=== PATIENT | female | born 2000 | race Caucasian/White ===

== ENCOUNTER 2025-01-18 06:00 | Day surgery (SDC) | payer MEDICAID, SELFPAY ==
[2025-01-14 07:19] VITALS: BMI 23.4
[2025-01-14 08:19] LABS: Basophils # (Auto) 0.0 Thou/mm3 (0.0-0.2); Basophils % (Auto) 0 % (0-2.5); Eosinophils # (Auto) 0.1 Thou/mm3 (0.0-0.5); Eosinophils % (Auto) 2 % (0-10); Hematocrit 37.5 % (36.0-46.0); Hemoglobin 12.4 g/dL (12.0-16.0); Immature Granulocytes Auto 0.03 Thou/mm3 (0.00-0.00); Lymphocytes # (Auto) 3.0 Thou/mm3 (1.0-4.8); Lymphocytes % (Auto) 40 % (10-50); Mean Corpuscular HGB Conc 33.1 g/dl (31.0-37.0); Mean Corpuscular Hemoglobin 29.6 pg (25.0-35.0); Mean Corpuscular Volume 90 fL (80-100); Monocytes # (Auto) 0.6 Thou/mm3 (0.0-0.8); Monocytes % (Auto) 7 % (0-12); Neutrophils # (Auto) 3.7 Thou/mm3 (1.8-7.7); Neutrophils % (Auto) 50 % (37-80); Nucleated Red Blood Cell # 0.00 Thou/mm3 (0.00-0.00); Nucleated Red Blood Cell % 0 /100 WBC (0); Platelet Count 238 Thou/mm3 (140-440); RDW Standard Deviation 45.9 fL (36.4-46.3); Red Blood Count 4.19 Miln/mm3 (4.00-5.20); White Blood Count 7.4 Thou/mm3 (3.6-11.0)
[2025-01-14 08:47] LABS: Anion Gap 11 (7-16); BUN/Creatinine Ratio 10 Ratio (12-20); Blood Urea Nitrogen 6 mg/dL (9-23); Calcium 9.7 mg/dL (8.3-10.6); Carbon Dioxide 24.4 mMol/L (20.0-31.0); Chloride 106 mMol/L (98-107); Creatinine (Component) 0.6 mg/dL (0.6-1.3); Estimated Creatinine Clearance 120.6 mL/min (>60); Glucose 82 mg/dL (74-106); Osmolality,Calculated 277 (275-295); Potassium 3.7 mMol/L (3.4-5.1); Sodium 141 mMol/L (136-145); eGFR > 60 See Note
[2025-01-14 09:04] LABS: HCG,Qualitative Serum Negative
[2025-01-18] VITALS (7 sets, daily range): BP systolic 93–120; BP diastolic 55–89; PULSE 67–85; RESP 12–15; TEMP 36.2–36.3; O2SAT 98–100; BMI 23.6
[2025-01-18] MEDS: RINGERS LACTATED 1000 ML 1,000 ML 20 ML IV (06:42)
[2025-01-18] MEDS: MIDAZOLAM INJ 1 MG/ML VIAL 2 ML 2 MG IVP (07:24)
--- NOTE | 2025-01-18 07:30 | CHAP ---
Patient was very nervous. I spent time comforting her and having a prayer with her.
--- NOTE | 2025-01-18 08:31 | SUR.PHASEI ---
pt received from OR in recovery bay 7. pt asleep but responds to voice, breathing unlabored on oxymask 6l. v/s stable. pt dressing to right breast dermabond x1 cdi. report received from Elle MORFIN and Myke JESSICA.
--- NOTE | 2025-01-18 08:31 | PD.SUROPNT ---
Date of Procedure 01/18/25 Pre Op Diagnosis Right breast mass on the outer and lower quadrant Post Op Diagnosis Right breast mass on outer and lower quadrant Procedure Right breast lumpectomy Findings An approximately 2-1/2 cm from and mobile mass on the outer and lower quadrant of right breast Procedure Description Patient brought into the operating room in supine position. After administration of general endotracheal anesthesia, patient's right breast was prepped and draped in standard surgical manner. The mass was palpated and noted to be in the outer and lower quadrant of right breast. After administration of local anesthesia an approximately 3 cm elliptical incision was made around the mass and dissection was deepened into soft tissue. The underlying mass was circumferentially dissected breast tissue and excised. The wound was washed and irrigated and hemostasis achieved using electrocautery. Subcutaneous tissue closed with interrupted sutures using 3-0 Vicryl and the incision was closed with 4-0 Monocryl in subcuticular fashion. Dermabond applied. Patient tolerated procedure well. She was extubated, breathing spontaneously and without difficulty and was transferred to postanesthesia care in stable condition. Instruments, needles and sponge counts were reported to be correct x 2. Anesthesia GETA and local Pathology / specimen Other (Right breast mass) Estimated Blood Loss 2 Condition Stable Disposition PACU Surgeon Mindy Rome MD Surgical Staff Operation Date: 01/18/25 08:00 <No data on this case meets the specified criteria>
--- NOTE | 2025-01-18 09:08 | SUR.PHASEII ---
pt able to tolerate oral fluids without difficulty swallowing or nausea/vomiting.
--- NOTE | 2025-01-18 09:31 | SUR.PHASEII ---
pt awake and alert, breathing unlabored on room air. v/s stable. pt dressing to right breast cdi. pt able to ambulate to wheelchair with steady gait. d/c instructions given with friend Remedios in room, all questions answered. pt d/c via wheelchair with all belongings.
== END 2025-01-18 09:31 | disposition home or self-care (01) ==
PROVIDERS: PCP Nurse Practitioner Family; Referring Provider Surgery; Visit Provider Surgery
PROC: (CPT 19301; principal; 2025-01-18 08:00)
DX: N60.81 Other benign mammary dysplasias of right breast (principal)
CPT/HCPCS: 19120; 36415; 80048; 84703; 85025; A4217; A4649; J0131; J0690; J2250; J2704; J3010; J3490; J7120; J1596